=== PATIENT | male | born 1960 | race Hispanic/Latino ===

== ENCOUNTER 2018-06-27 18:37 | Inpatient (IN) | payer MEDICAID ==
[2018-06-27 20:36] LABS: BASO % 0.9 % (0.0-2.0); EOS # 0.1 K/uL (0.0-0.7); EOS % 2.8 % (0.0-4.0); HEMOGLOBIN 14.1 g/dL (12.0-18.0); LYMPH # 2.5 K/uL (1.0-4.3); MEAN CELL VOLUME 92.7 fL (80.0-94.0); MEAN CORPUSCULAR HGB CONC 33.4 g/dL (33.0-37.0); MEAN PLATELET VOLUME 6.4 fL (7.2-11.7); MONO # 0.4 K/uL (0.0-0.8); MONO % 10.5 % (0.0-10.0); NEUT # 1.2 K/uL (1.8-7.0); NEUT % 27.8 % (50.0-75.0); NRBC % 0.1 % (0.0-2.0); RBC 4.55 Mil/uL (4.40-5.90); WHITE BLOOD COUNT 4.3 K/uL (4.8-10.8)
[2018-06-27 21:03] LABS: ALB/GLOB RATIO 1.5 (1.0-2.1); ALBUMIN 4.3 g/dL (3.5-5.0); ALT/SGPT 47 U/L (21-72); AST/SGOT 53 U/L (17-59); BLOOD UREA NITROGEN 6 mg/dL (9-20); CALCIUM 8.5 mg/dl (8.6-10.4); GFR AFRICAN-AMERICAN > 60; GFR NON-AFRICAN AMERICAN > 60
--- NOTE | 2018-06-27 21:16 | C.PDOC ---
History Of Present Illness 57-year-old male presents to the ED requesting detox from alcohol. He denies any drug use. Patient admits to a history of withdrawal seizures, and does not take any anti-epileptic medications. Otherwise he denies having any physical complaints at this time. Time Seen by Provider: 06/27/18 19:55 Chief Complaint (Nursing): Substance Abuse History Per: Patient History/Exam Limitations: no limitations Onset/Duration Of Symptoms: Days Current Symptoms Are (Timing): Still Present Suicide/Self Injury Attempted (Context): None Modifying Factor(s): Alcohol Past Medical History Reviewed: Historical Data, Nursing Documentation, Vital Signs Vital Signs: Last Vital Signs Temp 98.4 F 06/28/18 04:19 Pulse 71 06/28/18 04:19 Resp 20 06/28/18 04:19 BP 115/76 06/28/18 04:19 Pulse Ox 97 06/28/18 04:19 - Medical History PMH: Seizures (from alcohol withdrawal) Other PMH: Alcohol abuse Surgical History: No Surg Hx Family History: States: No Known Family Hx - Social History Hx Tobacco Use: No Hx Alcohol Use: Yes (daily) Hx Substance Use: No - Immunization History Hx Tetanus Toxoid Vaccination: No Hx Influenza Vaccination: No Hx Pneumococcal Vaccination: No Review Of Systems Constitutional: Negative for: Fever Respiratory: Negative for: Shortness of Breath Gastrointestinal: Negative for: Vomiting, Abdominal Pain Psych: Positive for: Other (alcohol abuse). Negative for: Suicidal ideation Physical Exam - Physical Exam Appears: Non-toxic, No Acute Distress Skin: Normal Color, Warm, Dry Head: Atraumatic, Normacephalic Eye(s): bilateral: Normal Inspection, EOMI Oral Mucosa: Moist Neck: Supple Chest: Symmetrical Cardiovascular: Rhythm Regular, No Murmur Respiratory: Normal Breath Sounds (clear to auscultation), No Rales, No Rhonchi , No Wheezing Gastrointestinal/Abdominal: Soft, No Tenderness, No Distention Extremity: Bilateral: Atraumatic, Normal Color And Temperature, Normal ROM Neurological/Psych: Oriented x3, Normal Speech, Other (No focal deficits) ED Course And Treatment - Laboratory Results Result Diagrams: 06/27/18 20:16 06/27/18 20:31 O2 Sat by Pulse Oximetry: 95 (RA) Pulse Ox Interpretation: Normal Progress Note: Patient was prescreened for detox. Blood work and urine sent. social worker assistant will evaluate patient and assist with bed placement. Case endorsed to ELMER Marrufo pending sobriety and placement. Disposition - Disposition Disposition Time: 07:00 Condition: STABLE Forms: [facility] (Welsh) - Clinical Impression Clinical Impression: Alcohol dependence - PA / PROCESS MECHANIC / Resident Statement MD/DO has reviewed & agrees with the documentation as recorded. - Scribe Statement The provider has reviewed the documentation as recorded by the Scribe (Elaine Savage) All medical record entries made by the Scribe were at my direction and personally dictated by me. I have reviewed the chart and agree that the record accurately reflects my personal performance of the history, physical exam, medical decision making, and the department course for this patient. I have also personally directed, reviewed, and agree with the discharge instructions and disposition.
[2018-06-27 21:42] LABS: SQUAMOUS EPITHIAL < 1 /hpf (0-5); URINE BACTERIA RARE (<OCC); URINE BILIRUBIN NEGATIVE (NEGATIVE); URINE BLOOD NEGATIVE (NEGATIVE); URINE CLARITY Clear (Clear); URINE COLOR Yellow (YELLOW); URINE GLUCOSE (UA) NORMAL (Normal); URINE LEUKOCYTE ESTERASE NEG Leu/uL (Negative); URINE PROTEIN NEGATIVE (NEGATIVE); URINE UROBILINOGEN NORMAL mg/dL (0.2-1.0)
[2018-06-27 23:03] LABS: BARBITURATES, UR NEGATIVE (NEGATIVE); BENZODIAZEPINES, UR POSITIVE (NEGATIVE); OPIATES, UR NEGATIVE (NEGATIVE); PHENCYCLIDINE, UR NEGATIVE (NEGATIVE)
--- NOTE | 2018-06-28 12:39 | PCM.BM ---
<Bety Rojas - Last Filed: 06/28/18 12:36> Treatment Plan Problems - Problems identified on initial assessmt Detox Date Initiated: 06/28/18 Time Initiated: 12:37 Assessment reference: NA Status: Active Depression Date Initiated: 06/28/18 Time Initiated: 12:37 Assessment reference: NA Status: Active Treatment assets and liabiliti Patient Assests: cooperative, insightful, self-reliant, ADL independent, negotiates basic needs, cognitively intact Patient Liabilities: live alone, financial problems, poor support system, substance abuse, medical problems - Milieu Protocol Maintain good personal hygiene: daily Encourage regular showers, daily Remind patient to perform daily oral care, daily Assist patient to perform ADL's Conduct patient checks and document Observation sheet: Q15 minutes Maintain personal safety: every shift Educate patient to report safety concerns to staff, every shift Monitor environment for contraband/sharps Medication safety: Monitor for expected outcome, potential side effects: every shift, Assess barriers to learning: every shift, Assess readiness for medication education: every shift <Norma Barfield - Last Filed: 06/29/18 13:16> - Diagnosis (1) Major depressive disorder Status: Acute Interventions: 06/29/18 13:16 * Assess/adjust medications daily and /or as needed * See patient on an individual basis 7x/week to assess symptoms of depression * Monitor for side effects & effectiveness of medications * (2) Alcohol dependence Status: Acute Interventions: 06/29/18 13:16 * Assess 7x/week regarding severity of withdrawal * Educate regarding risks, benefits, side effects and alternatives of medications * Use Motivational Interviewing for abstinence * Use CBT for relapse prevention * Medication management for withdrawal symptoms * Encourage medication assisted treatment * <Paige Vasquez - Last Filed: 06/29/18 15:38> Family Contact Family involvement: Patient does not wish Family/SO involvement Family contact: Patient declines to allow family contact at present - Goals for Treatment Patient goals for treatment: "I want to go to an outpatient program." Discharge/Continuing Care - Education Needs Education Needs: Patient Medication, Patient Diagnosis/Disease Process, Patient Coping Skills, Patient Placement options, Patient Community resources - Discharge Discharge Criteria: Free of Suicidal thoughts, Normal sleep pattern, Ability to care for self, No longer exhibiting s/s of withdrawal, Reduction of target symptoms Discharge to:: Home - Treatment Team Participation Discussed with Family/SO: No Was Patient/Family/SO present at Treatment Team Meeting: Yes
[2018-06-28] MEDS: Multiple Vitamins Tab PO SCH (13:37)
--- NOTE | 2018-06-28 23:55 | PCM.PSYCH ---
Initial Psychiatric Evaluation - Initial Psychiatric Evaluation Type of Admission: Voluntary Legal Status: Capacity Chief Complaint (in patient's own words): Ii was feeling depressed and suicidal.' History of Present Illness and Precipitating Events: Patient is a 57 year old CM, who came to the ED with depressed mood and suicidal ideation. Pt denies any past history of any inpatient psychiatric hospitalizations and denies any history of follow up with any psychiatrist. He reports that he drinks about 2 pints of vodka a day. Patient stated that on a Monday in May he got a DUI, which is his 4th DUI. Pt. verbalized to crisis intervention specialist that he was feeling suicidal due to a recent DUI as well as problems with his due to his drinking. According to the crisis intervention specialist pt. has an extensive detox history. Pt. lives sporadically with his and sometimes his mother. Pt. states they lost their job after receiving the DUI 2 weeks ago which has caused a lot of stress. Patient reports depressed mood and feelings of hopelessness and helplessness. He reports poor sleep and poor appetite. However, he denies any manic s/s. He denies any AVH or any paranoia. He reports withdrawal symptoms including abdominal cramps, anxiety, headaches, shakes and sweating. PMH: HTN Current Medications: Active Medications Generic Name Dose Route Start Last Admin Trade Name Buddy PRN Reason Stop Dose Admin Chlordiazepoxide 25 mg 06/28/18 14:00 06/28/18 23:42 Librium PO 07/03/18 13:59 Not Given Q6 PAULA Taper Chlordiazepoxide 25 mg 06/28/18 12:44 06/28/18 21:46 Librium PO 07/03/18 12:45 25 mg Q4H PRN Administration Alcohol Withdrawal Clonidine HCl 0.1 mg 06/28/18 12:44 06/28/18 17:18 Catapres PO 0.1 mg Q4H PRN Administration Symptoms of alcohol withdrawl Folic Acid 1 mg 06/28/18 12:45 06/28/18 13:37 Folic Acid PO 1 mg DAILY PAULA Administration Haloperidol 5 mg 06/28/18 12:46 Haldol PO Q6H PRN Agitation Hydroxyzine HCl 50 mg 06/28/18 12:46 Atarax PO Q6H PRN Anxiety Ibuprofen 600 mg 06/28/18 12:46 Motrin Tab PO Q6H PRN Pain, moderate (4-7) Mirtazapine 15 mg 06/28/18 22:00 06/28/18 21:46 Remeron PO 15 mg HS PAULA Administration Multivitamins 1 tab 06/28/18 12:45 06/28/18 13:37 Hexavitamin PO 1 tab DAILY PAULA Administration Pneumococcal Polyvalent Vaccine 0.5 ml 07/01/18 10:00 Pneumovax 23 Vaccine SC 07/01/18 10:01 .ONCE ONE Thiamine HCl 100 mg 06/28/18 12:45 06/28/18 13:37 Vitamin B1 Tab PO 100 mg DAILY PAULA Administration Trazodone HCl 50 mg 06/28/18 12:44 06/28/18 21:46 Desyrel PO 50 mg HS PRN Administration Insomnia Past Psychiatric History - Past Psychiatric History Previous Treatment History: None Pertinent Medical Hx (Current Medical&Sleep Prob, Allergies): Allergies Allergy/AdvReac Type Severity Reaction Status Date / Time No Known Allergies Allergy Verified 06/27/18 18:54 No Known Home Med 06/27/18 Review of Systems - Review of Systems All systems: reviewed and no additional remarkable complaints except - Psychiatric Psychiatric: Anxiety, Depression, Irritability, Suicidal Ideation. absent: Auditory Hallucinations Mental Status Examination - Personal Presentation Personal Presentation: Looks stated age - Affect Affect: Constricted, Depressed - Motor Activity Motor Activity: Calm - Reliability in Providing Information Reliability in Providing Information: Fair - Speech Speech: Organized - Mood Mood: Depressed, Anxious - Formal Thought Process Formal Thought Process: No Impairment - Obsessions/Compulsions Obsessions: No Compulsions: No - Cognitive Functions Orientation: Person, Place, Situation, Time Sensorium: Alert Attention/Concentration: Attentive Abstract Thinking: [place] Estimate of Intelligence: Below average Judgement: Imparied, as evidence by: Poor judgement, Imparied, as evidence by: Lack of insight into illness - Risk Risk: Suicidal, Withdrawal, Diminished functioning - Strength & Assets Inventory Strength & Assets Inventory: Family support DSM 5 DX - DSM 5 DSM 5 Diagnosis: Major depressive disorder single episode severe without psychotic features Alcohol use disorder severe Alcohol withdrawal - Recommended/Plan of Treatment Treatment Recommendations and Plan of Treatment: Major depressive disorder single episode severe without psychotic features -CBT -Psychoeducation -Supportive therapy, group therapy -Remeron 15 mg PO QHS -Gabapentin for augmentation -Trazodone for insomnia -Hydroxyzine for anxiety Alcohol use disorder severe Alcohol withdrawal -CBT -Psychoeducation -Supportive therapy, individual therapy -Start librium taper -MVI/Thiamine/Folic Acid - Smoking Cessation Smoking Cessation Initiated: No
[2018-06-29] MEDS: Multiple Vitamins Tab PO SCH (09:55)
[2018-06-30] MEDS: Multiple Vitamins Tab PO SCH (09:16)
--- NOTE | 2018-06-30 11:21 | PCM.PYCHPN ---
Psychiatric Progress Note - Psychiatric Progress Note Patient seen today, length of contact: 16 min Patient Chief Complaint: I m still feeling depressed.' Problems Identified/Issues Discussed: Patient seen and evaluated, chart reviewed and discussed with the nurse. Pt reports depressed mood, and at times feelings of hopelessness and helplessness. He remained isolated and withdrawn, and confined to her room. He still reports withdrawal symptoms from drinking. Patient is compliant with medications and denies any side effects. Symptoms are improving but pt needs more time to stabilize. Support and psychoeducation given. Medication Change: Yes (librium taper) Medical Record Reviewed: Yes Mental Status Examination - Cognitive Function Orientation: Person, Place, Situation, Time Memory: Intact Attention: WNL Concentration: Poor Association: WNL Fund of Knowledge: Poor - Mood Mood: Depressed, Anxious - Affect Affect: Constricted, Depressed - Speech Speech: Soft - Formal Thought Process Formal Thought Process: No Impairment - Suicidal Ideation Suicidal Ideation: No - Homicidal Ideation Homicidal Ideation: No Goal/Treatment Plan - Goal/Treatment Plan Need for Continued Stay: Severe depression anxiety, Severe functional impairment Progress Toward Problem(s) and Goals/Treatment Plan: Major depressive disorder single episode severe without psychotic features -CBT -Psychoeducation -Supportive therapy, group therapy -Increase Remeron 30 mg PO QHS -Gabapentin for augmentation -Trazodone for insomnia -Hydroxyzine for anxiety Alcohol use disorder severe Alcohol withdrawal -CBT -Psychoeducation -Supportive therapy, individual therapy -Librium taper -MVI/Thiamine/Folic Acid - Smoking Cessation Smoking Cessation Initiated: No
--- NOTE | 2018-06-30 16:36 | PCM.PYCHPN ---
Psychiatric Progress Note - Psychiatric Progress Note Patient seen today, length of contact: 15 minutes Patient Chief Complaint: I'm feeling much better. Problems Identified/Issues Discussed: Patient seen, chart reviewed, case discussed with the staff. Issues related to illness and treatment were discussed with the patient and staff. Reported compliant with treatment with no adverse affects. Tolerating treatment very well. Reported feeling much better. Calm and cooperative. Mood reported as good. Affect appropriate. Aftercare discussed with the patient. Patient was awake, alert and oriented 3. Denied any delusions, auditory or visual hallucinations, suicidal ideations or homicidal ideations at the time of evaluation. Medical Problems: Diabetes mellitus Hypertension Diagnostic Results: Reviewed DSM 5 Symptoms Update: Some improvement with treatment Medication Change: No Medical Record Reviewed: Yes Mental Status Examination - Cognitive Function Orientation: Person, Place, Situation, Time Memory: Intact Attention: WNL Concentration: WNL Association: WN Fund of Knowledge: [facility] Decription of patient's judgement and insights: Fair - Mood Mood: Depressed (Much less before) - Affect Affect: Depressed - Speech Speech: Soft - Formal Thought Process Formal Thought Process: No Impairment Psychotic Thoughts and Behaviors: None - Suicidal Ideation Suicidal Ideation: No - Homicidal Ideation Homicidal Ideation: No Goal/Treatment Plan - Goal/Treatment Plan Need for Continued Stay: Remain at risks for inpatient hospitalization, Discharge may exacerbated symptoms, Severe functional impairment Progress Toward Problem(s) and Goals/Treatment Plan: Patient education. Supportive therapy. Continue treatment as before. Estimated Date of D/C: 07/03/18 - Smoking Cessation Smoking Cessation Initiated: No
[2018-07-01 07:05] VITALS: O2SAT 98
[2018-07-01] MEDS ORDERED: Pneumococcal 23-Valent Vaccine SC ONE (10:00)
[2018-07-01] MEDS: Multiple Vitamins Tab PO SCH (10:32)
--- NOTE | 2018-07-01 16:10 | PCM.PYCHPN ---
Psychiatric Progress Note - Psychiatric Progress Note Patient seen today, length of contact: 15 minutes Patient Chief Complaint: I'm feeling much better. Problems Identified/Issues Discussed: Patient seen, chart reviewed, case discussed with the staff. Issues related to illness and treatment were discussed with the patient and staff. Reported compliant with treatment with no adverse affects. Tolerating treatment very well. Reported feeling much better. Calm and cooperative. Mood reported as good. Affect appropriate. Aftercare discussed with the patient. Patient was awake, alert and oriented 3. Denied any delusions, auditory or visual hallucinations, suicidal ideations or homicidal ideations at the time of evaluation. Medical Problems: Diabetes mellitus Hypertension Diagnostic Results: Reviewed DSM 5 Symptoms Update: Improving with treatment Medication Change: No Medical Record Reviewed: Yes Mental Status Examination - Cognitive Function Orientation: Person, Place, Situation, Time Memory: Intact Attention: WNL Concentration: WNL Association: WN Fund of Knowledge: [facility] Decription of patient's judgement and insights: Fair - Mood Mood: Depressed (Much less before) - Affect Affect: Depressed - Speech Speech: Soft - Formal Thought Process Formal Thought Process: No Impairment Psychotic Thoughts and Behaviors: None - Suicidal Ideation Suicidal Ideation: No - Homicidal Ideation Homicidal Ideation: No Goal/Treatment Plan - Goal/Treatment Plan Need for Continued Stay: Remain at risks for inpatient hospitalization, Discharge may exacerbated symptoms, Severe functional impairment Progress Toward Problem(s) and Goals/Treatment Plan: Patient education. Supportive therapy. Continue treatment as before. Estimated Date of D/C: 07/03/18 - Smoking Cessation Smoking Cessation Initiated: No
--- NOTE | 2018-07-02 10:34 | PCM.PYCHPN ---
Psychiatric Progress Note - Psychiatric Progress Note Patient seen today, length of contact: 16 min Patient Chief Complaint: I m feeling much better.' Problems Identified/Issues Discussed: Patient seen and evaluated, chart reviewed and discussed with the nurse. Pt reports improvement in depressed mood, and reports improvement in his feelings of hopelessness and helplessness. He reports improvement in withdrawal symptoms. Patient is compliant with medications and denies any side effects. Symptoms are improving but pt needs more time to stabilize. Support and psychoeducation given. Medication Change: Yes (librium taper) Medical Record Reviewed: Yes Mental Status Examination - Cognitive Function Orientation: Person, Place, Situation, Time Memory: Intact Attention: WNL Concentration: WNL Association: WNL Fund of Knowledge: Poor - Mood Mood: Depressed, Anxious - Affect Affect: Constricted, Depressed - Speech Speech: Soft - Formal Thought Process Formal Thought Process: No Impairment - Suicidal Ideation Suicidal Ideation: No - Homicidal Ideation Homicidal Ideation: No Goal/Treatment Plan - Goal/Treatment Plan Need for Continued Stay: Severe depression anxiety, Severe functional impairment Progress Toward Problem(s) and Goals/Treatment Plan: Major depressive disorder single 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
[2018-07-02] MEDS: Multiple Vitamins Tab PO SCH (10:36)
[2018-07-02] MEDS ORDERED: Aluminum Hydroxide/Magnesium Hydroxide Susp (30 mL) PO PRN (23:07)
[2018-07-03 06:50] VITALS: BP 126/75; PULSE 66; RESP 20; TEMP 98.3
--- NOTE | 2018-07-03 10:18 | PCM.PYCHDC ---
Mental Status Examination - Mental Status Examination Orientation: Person, Place, Situation, Time Memory: Intact Mood: Neutral Affect: Constricted Speech: Soft Attention: WNL Concentration: WNL Association: WNL Fund of Knowledge: WNL Formal Thought Process: No Impairment Description of patient's judgement and insight: good, fair Psychotic Thoughts and Behaviors: denies any AVH Suicidal Ideation: No Current Homicidal Ideation?: No Discharge Summary - Discharge Note Reason for Hospitalization: Patient is a 57 year old CM, who came to the ED with depressed mood and suicidal ideation. Pt denies any past history of any inpatient psychiatric hospitalizations and denies any history of follow up with any psychiatrist. He reports that he drinks about 2 pints of vodka a day. Patient stated that on a Monday in May he got a DUI, which is his 4th DUI. Pt. verbalized to reforestation worker that he was feeling suicidal due to a recent DUI as well as problems with his due to his drinking. According to the reforestation worker pt. has an extensive detox history. Pt. lives sporadically with his and sometimes his mother. Pt. states they lost their job after receiving the DUI 2 weeks ago which has caused a lot of stress. Patient reports depressed mood and feelings of hopelessness and helplessness. He reports poor sleep and poor appetite. However, he denies any manic s/s. He denies any AVH or any paranoia. He reports withdrawal symptoms including abdominal cramps, anxiety, headaches, shakes and sweating. Consultations:: List each consultation separately and include: 1. Reason for request. 2. Findings. 3. Follow-up Summary of Hospital Course include:: 1. Description of specific treatment plan utilized for patients during their course of treatmen. 2. Summarize the time- course for resolution of acute symptoms and/or regressed behaviors. 3. Describe issues identified and worked on during hospitalization. 4. Describe medication utilized. 5. Describe medical problems identified and treated. 6. Reassessment of suicide risk Summary of Hospital Course: During the course of his stay, patient (pt) started progressively improving and he no longer remained irritable, depressed, and suicidal. His mood and anxiety symptoms were improved and he started attending groups and meetings and started socializing. Patient denied any feelings of hopelessness, helplessness, and worthlessness, denied any problem with the sleep or appetite, denied suicidal ideation or homicidal ideation. Pt denied any auditory or visual hallucinations. He denied any withdrawal symptoms. Pt was treated with medications along with supportive therapy, milieu therapy and group therapy. Some changes were made in his current medications and patient was discharged on following medications. He tolerated these medications very well and denied any side effects. - Diagnosis (1) Major depressive disorder Status: Acute (2) Alcohol dependence Status: Acute - Final Diagnosis (DSM 5) Condition upon Discharge: STABLE DSM 5: Major depressive disorder single episode severe without psychotic features Alcohol use disorder severe Alcohol withdrawal Disposition: HOME/ ROUTINE Follow-up Treatment Plan: Followup: He was discharged to the [facility] Intensive outpatient program. Education: Pt was educated and counseled about the risks and benefits of taking and not taking medications. Pt was educated and counseled about the risks of drinking and abusing drugs. Pt was educated and counseled to go to the ER or call 911 if pt develop suicidal ideation or homicidal ideation, worsening of symptoms or severe side effects of the meds. Prescriptions/Medication Reconciliation: Gabapentin [Neurontin] 100 mg PO BID #60 cap Mirtazapine [Remeron] 30 mg PO HS #30 tab traZODone [Desyrel] 50 mg PO HS PRN #30 tab PRN Reason: Insomnia - Smoking Cessation Smoking Cessation Medication prescribed: No - Antipsychotic Medications Pt discharged on 2 or more routine antipsychotic medications: No
[2018-07-03] MEDS: Multiple Vitamins Tab PO SCH (10:36)
== END 2018-07-03 11:50 | disposition home or self-care (01) | DRG 430 ==
LOC: C.ER 18:37 → C.9E 06-28 10:08 → C.5E 06-28 11:48
PROVIDERS: ADMIT Psychiatry & Neurology Psychiatry; ATTEND Psychiatry & Neurology Psychiatry
PROC: GZ3ZZZZ Medication Management (ICD-10-PCS; principal; 2018-06-28)
PROC: GZHZZZZ Group Psychotherapy (ICD-10-PCS; 2018-06-28)
PROC: GZ56ZZZ Individual Psychotherapy, Supportive (ICD-10-PCS; 2018-06-28)
PROC: HZ2ZZZZ Detoxification Services for Substance Abuse Treatment (ICD-10-PCS; 2018-06-28)
PROC: HZ46ZZZ Group Counseling for Substance Abuse Treatment, Psychoeducation (ICD-10-PCS; 2018-06-28)
PROC: HZ56ZZZ Individual Psychotherapy for Substance Abuse Treatment, Psychoeducation (ICD-10-PCS; 2018-06-28)
DX: F32.2 Major depressive disorder, single episode, severe without psychotic features (principal); F10.239 Alcohol dependence with withdrawal, unspecified; R45.851 Suicidal ideations; G47.00 Insomnia, unspecified; F41.9 Anxiety disorder, unspecified; E11.9 Type 2 diabetes mellitus without complications; I10 Essential (primary) hypertension

== ENCOUNTER 2019-01-22 15:46 | Inpatient (IN) | payer MEDICAID, OTHER | END 2019-01-28 14:00 | disposition home or self-care (01) | DRG 772 | LOC: C.7D 01-24 21:48 → C.ER 15:46 → C.7D 01-24 21:48 | PROC: HZ42ZZZ Group Counseling for Substance Abuse Treatment, Cognitive-Behavioral (ICD-10-PCS; principal; 2019-01-22) | PROC: HZ2ZZZZ Detoxification Services for Substance Abuse Treatment (ICD-10-PCS; 2019-01-22) | PROC: HZ52ZZZ Individual Psychotherapy for Substance Abuse Treatment, Cognitive-Behavioral (ICD-10-PCS; 2019-01-22) | PROC: HZ59ZZZ Individual Psychotherapy for Substance Abuse Treatment, Supportive (ICD-10-PCS; 2019-01-22) | PROC: HZ56ZZZ Individual Psychotherapy for Substance Abuse Treatment, Psychoeducation (ICD-10-PCS; 2019-01-22) | PROC: HZ46ZZZ Group Counseling for Substance Abuse Treatment, Psychoeducation (ICD-10-PCS; 2019-01-22) | PROC: GZHZZZZ Group Psychotherapy (ICD-10-PCS; 2019-01-22) | PROC: GZ58ZZZ Individual Psychotherapy, Cognitive-Behavioral (ICD-10-PCS; 2019-01-22) | PROC: GZ56ZZZ Individual Psychotherapy, Supportive (ICD-10-PCS; 2019-01-22) | DX: F10.230 Alcohol dependence with withdrawal, uncomplicated (principal); F31.9 Bipolar disorder, unspecified; F32.9 Major depressive disorder, single episode, unspecified; Y90.8 Blood alcohol level of 240 mg/100 ml or more; G47.00 Insomnia, unspecified; M17.11 Unilateral primary osteoarthritis, right knee ==